=== PATIENT | male | born 1965 | race Two or more races ===

== ENCOUNTER 2018-05-02 21:46 | Emergency (ER) | payer OTHER ==
[~2018-05-02] VITALS: Ht 154.9 cm; Wt 74.8 kg
[2018-05-02 22:28] VITALS: BP 142/82
== END 2018-05-02 23:56 | disposition home or self-care (01) ==
LOC: ER 21:51
DX: S06.0X0A Concussion without loss of consciousness, initial encounter (principal); M54.6 Pain in thoracic spine; F17.200 Nicotine dependence, unspecified, uncomplicated; Z60.2 Problems related to living alone; V49.49XA Driver injured in collision with other motor vehicles in traffic accident, initial encounter; Y93.89 Activity, other specified; Y92.413 State road as the place of occurrence of the external cause; Y99.8 Other external cause status
CPT/HCPCS: 99283; A4606